=== PATIENT | female | born 1965 | race Caucasian/White ===

== ENCOUNTER → 2016-10-04 | Outpatient (CLI) | payer BC ==
--- NOTE | 2016-10-04 14:15 | MR ---
EXAMINATION TYPE: MR cervical spine wo con DATE OF EXAM: 10/04/2016 10:02 AM COMPARISON: CT cervical spine 12/24/2013 HISTORY: neck pain, low back and leg pain T1 sagittal and coronal, T2 sagittal, and gradient echo axial views of the cervical spine are submitt ed. The cranial cervical junction is preserved. There is no abnormal signal seen within the spinal cord or paraspinal soft tissues. Loss of the normal cervical lordosis noted. At C2-3 there is mild degenerative disc disease. No foraminal encroachment. Mild uncovertebral joint hypertrophy bilaterally. No Canal stenosis. At C3-4 there is mild to moderate degenerative disc disease with mild uncovertebral joint hypertrophy but no canal stenosis or foraminal encroachment. At C4-5 there is a small focal central disc herniation with moderate effacement of thecal sac. There is encroachment upon the anterior margin the spinal cord but no evidence of displacement. Neural fora marco patent. At C5-6 there is severe degenerative disc disease with posterior broad-based disc bulging capped by s pur and uncovertebral joint hypertrophy. There is moderate to severe bilateral foraminal encroachment and mild canal stenosis. Uncovertebral joint hypertrophy noted bilaterally. At C6-7 there is posterior spondylosis with spur capping disc bulging and a central broad-based posit ion. Uncovertebral joint hypertrophy bilaterally with mild bilateral foraminal encroachment. At C7-T1 there is no disc herniation or canal stenosis. No foraminal encroachment. IMPRESSION: 1. Multilevel severe degenerative disc disease with disc bulging capped by spur at C5-C6 and C6-C7 w ith significant bilateral foraminal encroachment. Mild canal stenosis C5-C6. 2. Focal small central disc herniation C4-C5. EXAMINATION TYPE: MR lumbar spine wo con DATE OF EXAM: 10/04/2016 10:02 AM COMPARISON: 02/14/2014 HISTORY: neck pain, low back and leg pain TECHNIQUE: T1 and T2 axial and sagittal images of the lumbar spine are submitted. FINDINGS: There is no abnormal signal seen within the visualized spinal cord or paraspinal soft tissu es. Tarlov Cyst S2 level noted. At L1-2 there is annular tear and central disc bulging but no canal stenosis. Hypertrophic change of the facet joints. No foraminal encroachment. At L2-3 there is facet arthropathy and mild circumferential disc bulging greater laterally to the rig ht with mild right-sided foraminal encroachment. At L3-4 there is no disc herniation or canal stenosis. No foraminal encroachment. Mild circumferentia l bulging. At L4-5 there is central and left paracentral broad-based disc protrusion appears fairly stable with mild to moderate right foraminal encroachment and moderate to severe left-sided foraminal encroachmen t with disc material extending laterally to the left. Finding appears stable. At L5-S1 there is degenerative disc disease and facet arthropathy. Mild circumferential disc bulging and hypertrophic change of the facets with bilateral mild to moderate foraminal encroachment appears stable. IMPRESSION: 1. Multilevel disc bulging or protrusions appears stable with multilevel foraminal encroachment as di scussed above.
== END | disposition home or self-care (01) ==
LOC: RADMRIMAIN 09:09
PROVIDERS: ATTEND Nurse Practitioner Acute Care
DX: M51.26 Other intervertebral disc displacement, lumbar region (principal); M48.02 Spinal stenosis, cervical region; M50.221 Other cervical disc displacement at C4-C5 level; M50.322 Other cervical disc degeneration at C5-C6 level; M50.323 Other cervical disc degeneration at C6-C7 level
CPT/HCPCS: 72141; 72148

== ENCOUNTER → 2016-10-04 | Outpatient (CLI) | payer BC ==
[2016-10-04 09:15] LABS: Basophils # (A) 0.1 k/uL (0-0.2); Basophils % (A) 1 %; CH 31.1; CHCM 33.2; Eosinophils # (A) 0.6 k/uL (0-0.7); Eosinophils % (A) 4 %; HCT 46.1 % (34.0-46.0); HDW 2.47; HGB 15.4 gm/dL (11.4-16.0); Luc # (Auto) 0.13; Luc % (Auto) 1; Lymphocytes # (A) 4.1 k/uL (1.0-4.8); Lymphocytes % (A) 30 %; MCH 31.4 pg (25.0-35.0); MCHC 33.3 g/dL (31.0-37.0); MCV 94.1 fL (80.0-100.0); Mean Platelet Volume 7.9; Monocytes # (A) 0.8 k/uL (0-1.0); Monocytes % (A) 6 %; Neutrophils # (A) 8.1 k/uL (1.3-7.7); Neutrophils % (A) 59 %; RDW 13.1 % (11.5-15.5); WBC 13.8 k/uL (3.8-10.6); WBC (Perox) 14.28
[2016-10-04 10:26] LABS: ALT 26 U/L (9-52); AST 19 U/L (14-36); Alkaline Phosphatase 111 U/L (38-126); Anion Gap 12 mmol/L; Blood Urea Nitrogen 17 mg/dL (7-17); Calcium 9.9 mg/dL (8.4-10.2); Carbon Dioxide 29 mmol/L (22-30); Chloride 104 mmol/L (98-107); Cholesterol 187 mg/dL (<200); Creatine Kinase 59 U/L (30-135); Glucose 112 mg/dL (74-99); HDL Cholesterol 49 mg/dL (40-60); Non-African American GFR(MDRD) >60 (>60 ml/min/1.73 sqM); Potassium 4.8 mmol/L (3.5-5.1); Sodium 145 mmol/L (137-145); Total Bilirubin 0.4 mg/dL (0.2-1.3); Total Protein 7.4 g/dL (6.3-8.2); Triglycerides 216 mg/dL (<150)
[2016-10-04 10:33] LABS: Rheumatoid Factor, Qnt <9 IU/mL (<12)
[2016-10-04 12:03] LABS: Erythrocyte Sedimentation Rate 7 mm/hr (0-20)
[2016-10-04 17:18] LABS: ANA w/Reflex to Titer NEGATIVE (NEGATIVE)
== END | disposition home or self-care (01) ==
LOC: LABWHC1 08:55
PROVIDERS: ATTEND Psychiatry & Neurology Neurology
DX: D64.9 Anemia, unspecified (principal); J44.9 Chronic obstructive pulmonary disease, unspecified; E78.5 Hyperlipidemia, unspecified; E55.9 Vitamin D deficiency, unspecified; M35.3 Polymyalgia rheumatica
CPT/HCPCS: 36415; 80053; 80061; 82306; 82550; 84439; 84443; 85025; 85652; 86038; 86431

== ENCOUNTER → 2018-07-28 | Outpatient (CLI) | payer OTHER ==
--- NOTE | 2018-08-08 14:48 | MM ---
Reason for exam: screening (asymptomatic). Last mammogram was performed 4 years and 8 months ago. Physical Findings: A clinical breast exam by your physician is recommended on an annual basis and results should be correlated with mammographic findings. MG Screening Mammo w CAD Bilateral CC and MLO view(s) were taken. Prior study comparison: December 03, 2013, mammogram, performed at [facility]. October 25, 2012, mammogram, performed at [facility]. There are scattered fibroglandular densities. Stable benign calcifications. There is no discrete abnormality. No significant changes when compared with prior studies. ASSESSMENT: Benign, BI-RAD 2 RECOMMENDATION: Routine screening mammogram of both breasts in 1 year.
== END ==
LOC: RADMAMWWP 14:46
PROVIDERS: ATTEND Internal Medicine
DX: Z12.31 Encounter for screening mammogram for malignant neoplasm of breast (principal)
CPT/HCPCS: 77067

== ENCOUNTER → 2018-10-16 | Outpatient (CLI) | payer OTHER ==
[2018-10-16 07:37] LABS: Basophils % (A) 0 %; Eosinophils # (A) 0.4 k/uL (0-0.7); Eosinophils % (A) 4 %; HCT 42.2 % (34.0-46.0); HGB 13.7 gm/dL (11.4-16.0); Lymphocytes # (A) 4.1 k/uL (1.0-4.8); Lymphocytes % (A) 38 %; MCH 30.2 pg (25.0-35.0); MCHC 32.4 g/dL (31.0-37.0); MCV 93.1 fL (80.0-100.0); Mean Platelet Volume 7.1; Monocytes # (A) 0.6 k/uL (0-1.0); Monocytes % (A) 5 %; Neutrophils # (A) 5.5 k/uL (1.3-7.7); Neutrophils % (A) 52 %; Platelet Count 237 k/uL (150-450); RBC 4.53 m/uL (3.80-5.40); RDW 13.7 % (11.5-15.5); WBC 10.7 k/uL (3.8-10.6)
[2018-10-16 09:33] LABS: Erythrocyte Sedimentation Rate 6 mm/hr (0-20)
[2018-10-16 17:15] LABS: ALT 17 U/L (8-44); AST 19 U/L (13-35); Albumin/Globulin Ratio 2.21 (1.60-3.17); Alkaline Phosphatase 103 U/L (41-126); C Reactive Protein <0.4 mg/dL (0.0-0.8); Calcium 9.4 mg/dL (8.7-10.3); Carbon Dioxide 27.1 mmol/L (21.6-31.8); Chloride 111 mmol/L (96-109); Cholesterol 170 mg/dL (0-200); Creatine Kinase 132 U/L (26-186); Globulin 1.9 g/dL (1.6-3.3); Glucose 92 mg/dL (70-110); LDL Cholesterol,Calculated 92.6 mg/dL (0.0-131.0); Potassium 4.3 mmol/L (3.5-5.5); Sodium 144 mmol/L (135-145); Total Bilirubin 0.1 mg/dL (0.3-1.2); Total Protein 6.1 g/dL (6.2-8.2)
[2018-10-16 17:18] LABS: Hemoglobin A1C 5.7 % (4.0-6.0)
[2018-10-16 18:12] LABS: Protein, Total 6.2 g/dL (6.2-8.2)
[2018-10-16 18:20] LABS: Vitamin D 25 Hydroxy 28.8 ng/mL (30.0-100.0)
[2018-10-17 10:19] LABS: Albumin 3.74 g/dL (3.80-4.90); Gamma Globulin 0.73 g/dL (0.70-1.50)
[2018-10-17 14:17] LABS: C-ANCA <1:20 Titer (<1:20); P-ANCA <1:20 Titer (<1:20)
== END | disposition home or self-care (01) ==
LOC: LABWHC1 06:42
PROVIDERS: ATTEND Internal Medicine
DX: J44.9 Chronic obstructive pulmonary disease, unspecified (principal); I73.00 Raynaud's syndrome without gangrene
CPT/HCPCS: 36415; 80053; 80061; 82306; 82550; 82595; 83036; 84165; 85025; 85652; 86038; 86140; 86160; 86162; 86225; 86235; 86255; 86334; 86335

== ENCOUNTER → 2019-06-06 | Outpatient (CLI) | payer OTHER ==
[2019-06-06 08:51] LABS: Basophils # (A) 0.1 k/uL (0-0.2); Basophils % (A) 1 %; Eosinophils # (A) 0.3 k/uL (0-0.7); Eosinophils % (A) 3 %; HCT 41.4 % (34.0-46.0); Lymphocytes % (A) 39 %; MCH 31.1 pg (25.0-35.0); MCHC 33.8 g/dL (31.0-37.0); Mean Platelet Volume 7.5; Monocytes # (A) 0.7 k/uL (0-1.0); Monocytes % (A) 7 %; Neutrophils # (A) 4.8 k/uL (1.3-7.7); Neutrophils % (A) 47 %; Platelet Count 248 k/uL (150-450); RDW 15.4 % (11.5-15.5); WBC 10.2 k/uL (3.8-10.6)
--- NOTE | 2019-06-06 09:05 | XR ---
EXAMINATION TYPE: XR chest 2V DATE OF EXAM: 06/06/2019 COMPARISON: 12/24/2013 TECHNIQUE: PA and lateral views submitted. HISTORY: Shortness of breath FINDINGS: The lungs are clear and there is no pneumothorax, pleural effusion, or focal pneumonia. Biapical pl eural thickening. No overt failure. Atherosclerotic change aorta. Slight curvature of the spine with hypertrophic changes. Mild hyperinflation. IMPRESSION: 1. No acute process.
[2019-06-06 17:38] LABS: African American GFR (CKD) 85.2 (60.0-200.0); Albumin 4.2 g/dL (3.80-4.90); Albumin/Globulin Ratio 2.21 (1.60-3.17); Anion Gap 10.7 mmol/L (4.00-12.00); BUN/Creat Ratio 18.89 Ratio (12.00-20.00); Calcium 8.8 mg/dL (8.7-10.3); Carbon Dioxide 24.3 mmol/L (21.6-31.8); Chol/HDL Ratio 3.62; Globulin 1.9 g/dL (1.6-3.3); LDL Cholesterol,Calculated 76.4 mg/dL (0.0-131.0); Potassium 4.4 mmol/L (3.5-5.5); Total Bilirubin 0.5 mg/dL (0.3-1.2); Total Protein 6.1 g/dL (6.2-8.2); VLDL Calculation 46.6 mg/dL (5.00-40.00)
[2019-06-06 17:46] LABS: T4, Free (Free Thyroxine) 1.3 ng/dL (0.80-1.80)
== END | disposition home or self-care (01) ==
LOC: LABWHC1 07:19
PROVIDERS: ATTEND Internal Medicine
DX: E78.5 Hyperlipidemia, unspecified (principal); R06.02 Shortness of breath
CPT/HCPCS: 36415; 71046; 80053; 80061; 82306; 84439; 84443; 85025

== ENCOUNTER → 2019-06-18 | Outpatient (CLI) | payer OTHER ==
--- NOTE | 2019-06-19 05:01 | CT ---
EXAMINATION TYPE: CT shoulder RT wo con DATE OF EXAM: 06/18/2019 COMPARISON: None HISTORY: 54-year-old female Right shoulder pain after old injury. TECHNIQUE: Contiguous axial scanning of the right shoulder without IV contrast. Coronal and sagittal reconstructions performed. 3-D reconstructions generated on a dedicated independent workstation. CT DLP: 321.9 mGycm Automated exposure control for dose reduction was used. FINDINGS: There is a retained metallic BB or other foreign body embedded within the lateral deltoid musculature . Moderate degenerative joint space narrowing with marginal spurring at the acromial clavicular joint w ith some inferior spurring from the distal clavicle. Preserved bulk of the rotator cuff musculature a nd overall preserved volume of the rotator cuff in the subacromial region. No michael fluid distention of the subacromial/subdeltoid bursa or sizable joint effusion. The glenohumeral joint appears intact. No acute fracture, subluxation, or dislocation seen. Right apical pleural parenchymal scarring with scattered mild emphysematous change. IMPRESSION: 1. RETAINED METALLIC BB OR OTHER FOREIGN BODY EMBEDDED WITHIN THE LATERAL DELTOID MUSCLE. 2. MODERATE AC JOINT OA WITH INFERIOR SPURRING FROM THE DISTAL CLAVICLE. THIS MAY CONTRIBUTE TO SYMPT OMS OF SUBACROMIAL IMPINGEMENT. CLINICALLY CORRELATE. 3. NO ROTATOR CUFF MUSCLE ATROPHY OR ACUTE OSSEOUS ABNORMALITY SEEN.
== END | disposition home or self-care (01) ==
LOC: RADCTMAIN 17:00
PROVIDERS: ATTEND Psychiatry & Neurology Neurology
DX: M19.011 Primary osteoarthritis, right shoulder (principal); Z88.8 Allergy status to other drugs, medicaments and biological substances

== ENCOUNTER → 2019-08-03 | Outpatient (CLI) | payer OTHER ==
--- NOTE | 2019-08-05 18:18 | CT ---
EXAMINATION TYPE: CT lumbar spine wo con DATE OF EXAM: 08/03/2019 COMPARISON: None HISTORY: 54-year-old female low back pain, no injury. TECHNIQUE: Contiguous axial scanning of the lumbar spine without IV contrast. Coronal and sagittal re constructions performed. CT DLP: 900 mGycm Automated exposure control for dose reduction was used. FINDINGS: There is leftward truncal shift. Accelerated degenerative change towards the left at L4-L5 with compl ete loss of disc height and vacuum phenomenon. Bulging disks throughout the lumbar spine. Vertebral body heights are preserved. Facet arthropathy mid to lower lumbar spine. Trace grade 1 retrolisthesis at L4-L5. No prevertebral or paravertebral soft tissue abnormality. At T12-L1, mild bulging disc eccentric towards the left. No significant canal or foraminal stenosis. At L1-L2, there is broad-based posterior disc bulge impressing on the ventral thecal sac but not caus ing significant spinal canal stenosis. There is facet arthropathy towards the right with minimal infe rior right neural foraminal narrowing. At L2-L3, there is diffuse disc bulge impressing on the ventral thecal sac but not causing significan t spinal canal stenosis. Facet arthropathy on the left and bulging disc contributes to a moderate rig ht neural foraminal stenosis. At L3-L4, there is diffuse disc bulge impressing on the ventral thecal sac. No significant spinal can al stenosis. Facet arthropathy greater towards the left. Changes result in mild bilateral neuroforami nal stenosis. At L4-L5, there is facet arthropathy with ligamentum flavum thickening and diffuse disc bulge. Again, impression on the ventral thecal sac without significant spinal canal stenosis. Changes result in mo derate right and severe left neuroforaminal stenosis. At L5-S1, diffuse disc bulge and facet arthropathy. Changes result in severe right and moderate left neural foraminal stenosis. No spinal canal stenosis. IMPRESSION: 1. ACCELERATED DEGENERATIVE DISC DISEASE TOWARDS THE LEFT AT L4-L5 WITH SECONDARY LEFTWARD TRUNCAL SH IFT. 2. HYPERTROPHIC FACET ARTHROPATHY MID TO LOWER LUMBAR SPINE AND BULGING DISCS THROUGHOUT THE REMAINDE R OF THE LUMBAR SPINE. DEGENERATIVE GRADE 1 RETROLISTHESIS AT L4-L5. 3. BULGING DISKS IMPRESS ON THE VENTRAL THECAL SAC AT MULTIPLE LEVELS BUT DOES NOT CONTRIBUTE TO ANY SIGNIFICANT SPINAL CANAL STENOSIS. 4. CHANGES RESULT IN SEVERE LEFT NEUROFORAMINAL STENOSIS AT L4-L5 AND SEVERE RIGHT AT L5-S1. ADDITION AL VARIABLE MILD AND MODERATE NEUROFORAMINAL STENOSES OUTLINED ABOVE.
== END | disposition home or self-care (01) ==
LOC: RADCTMAIN 16:52
PROVIDERS: ATTEND Psychiatry & Neurology Neurology
DX: M48.061 Spinal stenosis, lumbar region without neurogenic claudication (principal); M51.36 Other intervertebral disc degeneration, lumbar region; M43.16 Spondylolisthesis, lumbar region; M46.96 Unspecified inflammatory spondylopathy, lumbar region
CPT/HCPCS: 72131

== ENCOUNTER → 2019-08-17 | Outpatient (CLI) | payer OTHER ==
--- NOTE | 2019-08-21 07:52 | MM ---
Reason for exam: screening (asymptomatic). Last mammogram was performed 1 year and 1 month ago. History: Patient is postmenopausal. Physical Findings: A clinical breast exam by your physician is recommended on an annual basis and results should be correlated with mammographic findings. MG 3D Screening Mammo W/Cad Bilateral CC and MLO view(s) were taken. Prior study comparison: July 28, 2018, bilateral MG screening mammo w CAD. December 03, 2013, mammogram, performed at [facility]. The breast tissue is heterogeneously dense. This may lower the sensitivity of mammography. No significant changes when compared with prior studies. ASSESSMENT: Benign, BI-RAD 2 RECOMMENDATION: Routine screening mammogram of both breasts in 1 year.
== END | disposition home or self-care (01) ==
LOC: RADMAMWWP 14:20
PROVIDERS: ATTEND Internal Medicine
DX: Z12.31 Encounter for screening mammogram for malignant neoplasm of breast (principal)
CPT/HCPCS: 77063; 77067

== ENCOUNTER → 2021-02-13 | Outpatient (CLI) | payer OTHER ==
[2021-02-13 12:06] LABS: Basophils # (A) 0.03 X 10*3/uL (0.00-0.10); Basophils % (A) 0.4 %; Eosinophils # (A) 0.22 X 10*3/uL (0.04-0.35); Eosinophils % (A) 2.7 %; HCT 42.4 % (37.2-46.3); HGB 13.6 g/dL (12.0-15.0); Lymphocytes # (A) 2.83 X 10*3/uL (0.90-5.00); Lymphocytes % (A) 34.7 %; MCH 30.2 pg (27.0-32.0); MCHC 32.1 g/dL (32.0-37.0); Mean Platelet Volume 10.8 fL (9.5-12.2); Monocytes # (A) 0.93 X 10*3/uL (0.20-1.00); Monocytes % (A) 11.4 %; Neutrophils # (A) 4.11 X 10*3/uL (1.80-7.70); Neutrophils % (A) 50.4 %; Platelet Count 279 X 10*3/uL (140-440); RBC 4.51 X 10*6/uL (4.10-5.20); RDW 13.4 % (11.5-14.5); WBC 8.15 X 10*3/uL (4.50-10.00)
[2021-02-13 14:03] LABS: Erythrocyte Sedimentation Rate 8 mm/Hr (0-30)
[2021-02-14 04:35] LABS: African American GFR (CKD) 84.6 (60.0-200.0); Albumin 4.3 g/dL (3.80-4.90); Albumin/Globulin Ratio 1.72 (1.60-3.17); Anion Gap 13.5 mmol/L (4.00-12.00); BUN/Creat Ratio 15.56 Ratio (12.00-20.00); C Reactive Protein 0.4 mg/dL (0.0-0.8); Calcium 9.9 mg/dL (8.7-10.3); Carbon Dioxide 22.5 mmol/L (21.6-31.8); Chol/HDL Ratio 4.19; Globulin 2.5 g/dL (1.6-3.3); LDL Cholesterol,Calculated 129.6 mg/dL (0.0-131.0); Magnesium 2.2 mg/dL (1.5-2.4); Potassium 4.7 mmol/L (3.5-5.5); T4, Free (Free Thyroxine) 0.8 ng/dL (0.80-1.80); Total Bilirubin 0.1 mg/dL (0.3-1.2); Total Protein 6.8 g/dL (6.2-8.2); VLDL Calculation 20.4 mg/dL (5.00-40.00)
== END | disposition home or self-care (01) ==
LOC: LABWHC1 02-12 08:39
PROVIDERS: ATTEND Internal Medicine
DX: D64.9 Anemia, unspecified (principal); E78.5 Hyperlipidemia, unspecified; E03.9 Hypothyroidism, unspecified; E55.9 Vitamin D deficiency, unspecified
CPT/HCPCS: 36415; 80053; 80061; 82306; 82550; 83735; 84439; 84443; 85025; 85652; 86140

== ENCOUNTER → 2021-10-02 | Outpatient (CLI) | payer OTHER ==
[2021-10-02 14:35] LABS: Basophils # (A) 0.03 X 10*3/uL (0.00-0.10); Basophils % (A) 0.3 %; Eosinophils # (A) 0.24 X 10*3/uL (0.04-0.35); Eosinophils % (A) 2.8 %; HCT 42.1 % (37.2-46.3); HGB 13.5 g/dL (12.0-15.0); Lymphocytes # (A) 2.75 X 10*3/uL (0.90-5.00); Lymphocytes % (A) 31.6 %; MCH 28.9 pg (27.0-32.0); MCHC 32.1 g/dL (32.0-37.0); MCV 90.1 fL (80.0-97.0); Mean Platelet Volume 10.5 fL (9.5-12.2); Monocytes # (A) 0.86 X 10*3/uL (0.20-1.00); Monocytes % (A) 9.9 %; Neutrophils # (A) 4.81 X 10*3/uL (1.80-7.70); Neutrophils % (A) 55.2 %; Platelet Count 291 X 10*3/uL (140-440); RBC 4.67 X 10*6/uL (4.10-5.20); RDW 13.5 % (11.5-14.5); WBC 8.71 X 10*3/uL (4.50-10.00)
[2021-10-02 17:19] LABS: ALT 25 U/L (8-44); AST 25 U/L (13-35); African American GFR (CKD) 95.1 (60.0-200.0); Albumin 4.3 g/dL (3.8-4.9); Albumin/Globulin Ratio 1.45 (1.60-3.17); Alkaline Phosphatase 100 U/L (41-126); BUN/Creat Ratio 20.32 Ratio (12.00-20.00); Blood Urea Nitrogen 16.5 mg/dL (9.0-27.0); Calcium 9.5 mg/dL (8.7-10.3); Carbon Dioxide 22.7 mmol/L (20.0-27.5); Chloride 103 mmol/L (96-109); Glucose 100 mg/dL (70-110); Non-African American GFR(CKD) 82.1 (60.0-200.0); Potassium 4.4 mmol/L (3.5-5.5); Sodium 141 mmol/L (135-145); Total Bilirubin <0.20 mg/dL (0.30-1.20); Total Protein 7.3 g/dL (6.2-8.2)
== END | disposition home or self-care (01) ==
LOC: LABWHC1 09:18
PROVIDERS: ATTEND Psychiatry & Neurology Neurology
DX: E55.9 Vitamin D deficiency, unspecified (principal); M79.10 Myalgia, unspecified site; E53.9 Vitamin B deficiency, unspecified; R42 Dizziness and giddiness
CPT/HCPCS: 36415; 80053; 82306; 82607; 84207; 84439; 84443; 84481; 85025

== ENCOUNTER → 2022-10-11 | Outpatient (CLI) | payer OTHER ==
[2022-10-11 15:16] LABS: Basophils # (A) 0.04 X 10*3/uL (0.00-0.10); Basophils % (A) 0.5 %; Eosinophils # (A) 0.26 X 10*3/uL (0.04-0.35); HCT 42.9 % (37.2-46.3); HGB 13.7 g/dL (12.0-15.0); Immature Grans, Automated 0.2 %; Lymphocytes # (A) 2.81 X 10*3/uL (0.90-5.00); Lymphocytes % (A) 32.7 %; MCH 29.3 pg (27.0-32.0); MCHC 31.9 g/dL (32.0-37.0); MCV 91.7 fL (80.0-97.0); Mean Platelet Volume 11.3 fL (9.5-12.2); Monocytes # (A) 0.78 X 10*3/uL (0.20-1.00); Monocytes % (A) 9.1 %; NRBC Per 100 WBC 0 /100 WBCS (0.0-0.0); Neutrophils # (A) 4.68 X 10*3/uL (1.80-7.70); Neutrophils % (A) 54.5 %; Platelet Count 272 X 10*3/uL (140-440); RBC 4.68 X 10*6/uL (4.10-5.20); RDW 13.7 % (11.5-14.5); WBC 8.59 X 10*3/uL (4.50-10.00)
[2022-10-11 16:07] LABS: ALT 17 U/L (8-44); AST 17 U/L (13-35); African American GFR (CKD) 98.1 (60.0-200.0); Albumin 4.4 g/dL (3.8-4.9); Albumin/Globulin Ratio 1.86 (1.60-3.17); Alkaline Phosphatase 103 U/L (41-126); BUN/Creat Ratio 19.82 Ratio (12.00-20.00); Blood Urea Nitrogen 15.6 mg/dL (9.0-27.0); Calcium 9.7 mg/dL (8.7-10.3); Carbon Dioxide 24.5 mmol/L (20.0-27.5); Chloride 104 mmol/L (96-109); Chol/HDL Ratio 4.03 Ratio; Creatine Kinase 93 U/L (26-186); Globulin 2.4 g/dL (1.6-3.3); Glucose 108 mg/dL (70-110); LDL Cholesterol,Calculated 135.6 mg/dL (0.0-131.0); Non-African American GFR(CKD) 84.7 (60.0-200.0); Potassium 4.5 mmol/L (3.5-5.5); Sodium 141 mmol/L (135-145); Total Bilirubin <0.15 mg/dL (0.30-1.20); Total Protein 6.8 g/dL (6.2-8.2)
[2022-10-11 16:19] LABS: Erythrocyte Sedimentation Rate 17 mm/Hr (0-30)
== END | disposition home or self-care (01) ==
LOC: LABWHC1 08:18
PROVIDERS: ATTEND Internal Medicine
DX: Z00.00 Encounter for general adult medical examination without abnormal findings (principal); D64.9 Anemia, unspecified; J44.9 Chronic obstructive pulmonary disease, unspecified; E87.8 Other disorders of electrolyte and fluid balance, not elsewhere classified; E87.5 Hyperkalemia; M81.0 Age-related osteoporosis without current pathological fracture; E03.9 Hypothyroidism, unspecified; G43.909 Migraine, unspecified, not intractable, without status migrainosus
CPT/HCPCS: 36415; 80053; 80061; 82550; 84439; 84443; 85025; 85652; 86140

== ENCOUNTER → 2024-08-17 | Outpatient (CLI) | payer OTHER ==
[2024-08-17 10:35] LABS: Creatinine,Urine Random 35.8 mg/dL; Protein/Creatinine Ratio,Urine 0.307
[2024-08-17 15:37] LABS: Basophils # (A) 0.02 X 10*3/uL (0.00-0.10); Basophils % (A) 0.3 %; Eosinophils # (A) 0.14 X 10*3/uL (0.04-0.35); Eosinophils % (A) 2.1 %; HCT 42.5 % (37.2-46.3); Lymphocytes # (A) 2.21 X 10*3/uL (0.90-5.00); Lymphocytes % (A) 33.9 %; MCH 29.4 pg (27.0-32.0); MCHC 32.9 g/dL (32.0-37.0); MCV 89.3 FL (80.0-97.0); Mean Platelet Volume 11.3 FL (9.5-12.2); Monocytes # (A) 0.55 X 10*3/uL (0.20-1.00); Monocytes % (A) 8.4 %; NRBC Per 100 WBC 0 X 10*3/uL (0.00-0.01); Neutrophils # (A) 3.59 X 10*3/uL (1.80-7.70); Neutrophils % (A) 55.1 %; Platelet Count 260 X 10*3/uL (140-440); RBC 4.76 X 10*6/uL (4.10-5.20); RDW 14.1 % (11.5-14.5); WBC 6.52 X 10*3/uL (4.50-10.00)
[2024-08-17 16:12] LABS: % Iron Saturation 23.39 (12.00-45.00); ALT 13 U/L (8-44); AST 20 U/L (13-35); Albumin 4.4 g/dL (3.8-4.9); Albumin/Globulin Ratio 1.69 Ratio (1.60-3.17); Alkaline Phosphatase 88 U/L (41-126); BUN/Creat Ratio 15.29 Ratio (12.00-20.00); Blood Urea Nitrogen 10.7 mg/dL (9.0-27.0); C Reactive Protein <0.30 mg/dL (0.00-0.80); Calcium 9.8 mg/dL (8.7-10.3); Carbon Dioxide 28.2 mmol/L (21.6-31.8); Chloride 104 mmol/L (96-109); Chol/HDL Ratio 3.12 Ratio; Creatine Kinase 64 U/L (26-186); Ferritin 37.9 ng/mL (10.0-291.0); Globulin 2.6 g/dL (1.6-3.3); Glucose 107 mg/dL (70-110); Iron 80 UG/DL (50-170); LDL Cholesterol,Calculated 118.5 mg/dL (0.0-131.0); Potassium 4.4 mmol/L (3.5-5.5); Sodium 143 mmol/L (135-145); Total Bilirubin 0.2 mg/dL (0.3-1.2); Total Iron Binding Capacity 342 UG/DL (228-460)
[2024-08-17 16:34] LABS: Appearance,Urine Clear (Clear); Bilirubin,Urine Negative (Negative); Blood,Urine Negative (Negative); Color,Urine Yellow (Yellow); Ketones,Urine Negative (Negative); Nitrite,Urine Negative (Negative); Specific Gravity,Urine 1.008 (1.001-1.030); Urobilinogen,Urine 0.2 E.U./DL
[2024-08-17 16:48] LABS: Erythrocyte Sedimentation Rate 7 mm/Hr (0-30)
[2024-08-17 19:35] LABS: Microalbumin Creatinine Ratio <33 mg/g Cr (0-30); Urine Creatinine 36.2 mg/dL (28.0-217.0)
== END | disposition home or self-care (01) ==
LOC: LABWHC1 08:16
PROVIDERS: ATTEND Internal Medicine
DX: Z00.00 Encounter for general adult medical examination without abnormal findings (principal); I10 Essential (primary) hypertension; E78.5 Hyperlipidemia, unspecified; D64.9 Anemia, unspecified; E03.9 Hypothyroidism, unspecified; E55.9 Vitamin D deficiency, unspecified
CPT/HCPCS: 36415; 80053; 80061; 81003; 82043; 82306; 82550; 82570; 82728; 83540; 83550; 84156; 84443; 85025; 85652; 86140

== ENCOUNTER → 2024-09-10 | Outpatient (CLI) | payer OTHER ==
--- NOTE | 2024-09-10 16:41 | CTL ---
EXAMINATION TYPE: CT Low Dose Lung DATE OF EXAM ORDERED: 09/10/2024 COMPARISON: None CLINICAL INDICATION: Female, 59 years old with history of Z12.2 LUNG CA SCR Z87.891 FORMER [employer]MO[employer]; PH H, Lung screening for nicotine dependence of 1ppd x30 years., Lung cancer screening, History of Smoki ng/tobacco use. TECHNIQUE: Low dose computed tomography scan was performed through the chest at 1 mm thick sections a nd reconstructed images in multiple planes at 1 mm and [address] DLP: [address] CTDI: 2.2 mGy Automated exposure control for dose reduction was used. CT DIAGNOSTIC QUALITY: Satisfactory FINDINGS: There are 2 micronodules in the right lower lobe. There is no airspace consolidation or abnormal interstitial density. There is no pleural effusion, pleural thickening or pneumothorax. There is a 4 cm dilatation of the ascending thoracic aorta. There is no cardiomegaly. There is no mediastinal, hilar or axillary adenopathy. Limited scanning reveals no gross abnormality. No focal osseous lesions are seen. IMPRESSION: 1. Lung RADS category 2 benign. Continue routine screening intervals. 2. No acute cardiopulmonary disease. 3. 4 cm dilatation of the ascending thoracic aorta. [facility], , 09/10/2024 4:38 PM
== END | disposition home or self-care (01) ==
LOC: RADCTMAIN 15:19
PROVIDERS: ATTEND Internal Medicine
DX: Z12.2 Encounter for screening for malignant neoplasm of respiratory organs (principal); Z87.891 Personal history of nicotine dependence
CPT/HCPCS: 71271

== ENCOUNTER → 2024-09-20 | Outpatient (CLI) | payer OTHER ==
--- NOTE | 2024-09-21 07:28 | MM ---
Reason for Exam: Screening (asymptomatic). Last mammogram was performed 5 year(s) and 1 month(s) ago. Patient History: Menarche at age 13. First Full-Term at age 28. Postmenopausal. Patient has history of breast feeding. Risk Values: Chanel 5 year model risk: 1.6%. NCI Lifetime model risk: 9.5%. Prior Study Comparison: 12/03/2013 Screening Mammogram, [facility]. 07/28/2018 Bilateral Screening Mammogram, [facility]. 08/17/2019 Bilateral Screening Mammogram, [facility]. Tissue Density: The breasts are heterogeneously dense, which may obscure small masses. Findings: Analyzed By CAD. Right breast: There is no suspicious group of microcalcifications or new suspicious mass. Benign-appearing calcifications right breast. Left breast: There is no suspicious group of microcalcifications or new suspicious mass. Benign-appearing calcifications left breast. Overall Assessment: Benign, BI-RAD 2 Management: Screening Mammogram of both breasts in [address] [facility] will attempt to contact patient to return for supplemental views and ultrasound if indicated. Patient should continue monthly self-breast exams. A clinical breast exam by your physician is recommended on an annual basis. This exam should not preclude additional follow-up of suspicious palpable abnormalities. Note on Chanel scores and lifetime risk: 1. A Chanel score greater than 3% is considered moderate risk. If this is the case, consider specialist referral to assess eligibility for a risk reducing agent. 2. If overall lifetime risk for the development of breast cancer is 20% or higher, the patient may qualify for future screening with alternating mammogram and breast MRI. [facility], , 09/21/2024 7:24 AM. Electronically signed and approved by: Cedrick Frances DO
== END | disposition home or self-care (01) ==
LOC: RADMAMWWP 15:54
PROVIDERS: ATTEND Internal Medicine
DX: Z12.31 Encounter for screening mammogram for malignant neoplasm of breast (principal); Z78.0 Asymptomatic menopausal state; R92.333 Mammographic heterogeneous density, bilateral breasts
CPT/HCPCS: 77063; 77067